=== PATIENT | female | born 1990 | race Caucasian/White ===

== ENCOUNTER 2018-10-18 05:57 | Inpatient (IN) | payer BC ==
--- NOTE | 2018-10-18 06:34 | Admission Physical ---
Datetime Report Generated by CPN: 10/18/2018 06:33 CURRENT ADMISSION Chief Complaint: Uterine Contractions Indication for Induction: Not Applicable Admit Impression : Term, Intrauterine Admit Plan: Initiate Labor Protocol ALLERGIES Medication Allergies: No OBSTETRICAL HISTORY : 1 Para: 0 Term: 0 : 0 SAB: 0 IAB: 0 Ectopic: 0 Livin Cesareans: 0 VBACs: 0 Multiple Births: 0 PHYSICAL EXAM General: Normal HEENT: Normal Neurologic: Normal Thyroid: Normal Heart: Normal Lungs: Normal Breast: Deferred Back: Normal Abdomen: Normal Genitourinary Exam: Normal Extremities: Normal DTRs: Normal Pelvic Type: Adequate INFORMED CONSENT Signature: with User ID: [email or web address]
[2018-10-18 06:41] LABS: APPEARANCE,URINE SLIGHTLY-CLOUDY; BILIRUBIN,URINE NEGATIVE (NEGATIVE); COLOR,URINE YELLOW; GLUCOSE, URINE NEGATIVE (NEGATIVE); KETONES,URINE NEGATIVE (NEGATIVE); LEUKOCYTE ESTERASE,URINE NEGATIVE (NEGATIVE); NITRITE,URINE NEGATIVE (NEGATIVE); PROTEIN,URINE NEGATIVE (NEGATIVE); URINE SPECIFIC GRAVITY 1.013; UROBILINOGEN,URINE NEGATIVE mg/dL (<2.0)
[2018-10-18 07:02] LABS: URINE AMPHETAMINES SCREEN NEGATIVE; URINE BARBITURATES SCREEN NEGATIVE; URINE BENZODIAZEPINES SCREEN NEGATIVE; URINE COCAINE SCREEN NEGATIVE; URINE MARIJUANA (THC) SCREEN NEGATIVE; URINE METHADONE SCREEN NEGATIVE; URINE PHENCYCLIDINE SCREEN NEGATIVE
[2018-10-18] MEDS ORDERED: RINGERS SOLUTION,LACTATED 1,000 ML IV ONE (07:03)
[2018-10-18] MEDS ORDERED: RINGERS SOLUTION,LACTATED 1,000 ML IV PRN (07:03)
[2018-10-18] MEDS ORDERED: OXYTOCIN 10 UNIT/ML VIAL ONE (07:57)
[2018-10-18] MEDS ORDERED: OXYTOCIN/NORMAL SALINE 20 UNIT/1,000 ML RTUINJ ONE (07:58)
[2018-10-18] MEDS ORDERED: MISOPROSTOL 0.2 MG TABLET ONE ×2 (07:58→07:59)
[2018-10-18] MEDS ORDERED: LIDOCAINE 1% INJ-PF (10 MG/ML) 30 ML SDV ONE (07:58)
[2018-10-18 08:14] LABS: ABSOLUTE LYMPHOCYTES (AUTO) 1.3 10^3/uL (0.5-4.7); ABSOLUTE MONOCYTES (AUTO) 0.7 10^3/uL (0.1-1.4); BASOPHILS % (AUTO) 0.3 % (0-2); EOSINOPHILS % (AUTO) 0.4 % (0-6); HEMATOCRIT 37.6 % (36.0-47.0); HEMOGLOBIN 12.8 g/dL (12.0-15.5); LYMPHOCYTES % (AUTO) 12.1 % (13-45); MEAN CORPUSCULAR HEMOGLOBIN 29.7 pg (27.0-33.4); MEAN CORPUSCULAR HGB CONC 34.1 g/dL (32.0-36.0); MEAN CORPUSCULAR VOLUME 87 fl (80-97); MONOCYTES % (AUTO) 5.9 % (3-13); PLATELET COUNT 181 10^3/uL (150-450); RED BLOOD COUNT 4.31 10^6/uL (3.72-5.28); RED CELL DISTRIBUTION WIDTH 13.6 % (11.5-14.0); SEGMENTED NEUTROPHILS % (AUTO) 81.3 % (42-78); TOTAL CELLS COUNTED % (AUTO) 100 %
[2018-10-18] MEDS ORDERED: DIBUCAINE 1% OINTMENT 56 GM TP PRN (10:15)
[2018-10-18] MEDS ORDERED: ZOLPIDEM TARTRATE 5 MG TABLET PO PRN (10:15)
[2018-10-18] MEDS ORDERED: BENZOCAINE/MENTHOL AEROSOL SPRAY 56 ML TOP PRN (10:15)
[2018-10-18] MEDS ORDERED: ACETAMINOPHEN WITH CODEINE #3 TABLET PO PRN (10:15)
[2018-10-18] MEDS ORDERED: DIPH/PERTUSS(ACELL)/TETANUS VAC/PF 0.5 ML SYR (>=10YO) IM PRN (10:15)
[2018-10-18] MEDS ORDERED: MEASLES,MUMPS&RUBELLA VACC/PF 0.5 ML VIAL SUBCUT PRN (10:15)
[2018-10-18] MEDS ORDERED: OXYTOCIN/NORMAL SALINE 20 UNIT/1,000 ML RTUINJ IV PRN (10:15)
--- NOTE | 2018-10-18 11:29 | Warning Signs in Babies ---
VOD Warning Signs Datetime Report Generated by [facility]: 10/18/2018 11:29 VOD#608 -Warning Signs in Babies: Viewed with Parent(s)/Family (10/18/2018 11:29:Jose Frazier RN)
--- NOTE | 2018-10-18 11:30 | Warning Signs in Babies ---
VOD Warning Signs Datetime Report Generated by [facility]: 10/18/2018 11:30 VOD#608 -Warning Signs in Babies: Viewed with Parent(s)/Family (10/18/2018 11:29:Jose Frazier RN)
--- NOTE | 2018-10-18 13:15 | Delivery Summary ---
Del Sum A-C Datetime Report Generated by CPN: 10/18/2018 13:15 DELIVERY PERSONNEL DELIVERY PERSONNEL: [id number] Delivery Doctor:: Nathalia Landa CNM Labor and Delivery Nurse:: Jose Frazier RNprotein chemist Nurse:: Izabel Pettit RN Nursery Nurse:: Domonique Berrios RN Student Observers:: SN Reyna TEJADA RN H STANZIL, SN S TILLEY, SN Scrub Tech/PRIMER CHARGING TOOL SETTER: Tigist Chu, ST MATERNAL INFORMATION Delivery Anesthesia: None Medications After Delivery: Pitocin Bolus-Please Comment; Pitocin Drip 20 Units/1000ml NSS Maternal Complications: None Provider Comments: of VFI, TEMO, Meconium stained fluid present and noted during pushing. Baby was bulb suctioned and placed on pts abdoman vigourus and crying. Cord clamped after 90 seconds, Cord blood obtained. Apgars 8,0. Umbilical cord evulsed as placenta was delivering, placenta grabbed in the vaginal canal and gentley delivered. ff w/ decreased lochia, IV Pitocin infusing. 2nd degree laceration repaired. Pt and baby both in stable condition and she plans to breastfeed. QBL 200 ml. Attending MD is Dr Plunkett LABOR SUMMARY EDC: 10/19/2018 00:00 No. Babies in Womb: 1 Attempted: No Labor Anesthesia: None LABOR INFORMATION Reason for Induction: Not Applicable Onset of Labor: 10/18/2018 04:00 Complete Dilatation: 10/18/2018 09:15 Oxytocin: N/A Group B Beta Strep: Negative Antibiotics # of Doses: 0 Steroids Given: None Reason Steroids Not Administered: Not Applicable MEMBRANES Membranes Rupture Method: Artificial Rupture of Membranes: 10/18/2018 09:15 Length of Rupture (hr): 0.43 Amniotic Fluid Color: Bloody Amniotic Fluid Amount: Small Amniotic Fluid Odor: None STAGES OF LABOR Stage 1 hr: 5 Stage 1 min: 15 Stage 2 hr: 0 Stage 2 min: 26 Stage 3 hr: 0 Stage 3 min: 7 Total Time in Labor hr: 5 Total Time in Labor min: 48 VAGINAL DELIVERY Episiotomy: None Laceration #1: Perineal Laceration Extension #1: Second Degree Laceration #2: Perineal Laceration Repair: Yes Laceration Repair Note: 2nd degree laceration repaired using 3.0 Vicryl and 1% lidocaine local anesthetic. Pt tolerated procedure well Sponge Count Correct: N/A Sharps Count Correct: N/A CSECTION DELIVERY Primary Indication: N/A Secondary Indication: N/A CSection Incidence: N/A Labor: N/A Elective: N/A BABY A INFORMATION Delivery Date/Time: 10/18/2018 09:41 Method of Delivery: Vaginal Born in Route : No : N/A Forceps: N/A Vacuum Extraction: N/A Shoulder Dystocia : No PRESENTATION/POSITION BABY A Presentation: Cephalic Cephalic Presentation: Vertex Vertex Position: Right Occipital Anterior Breech Presentation: N/A PLACENTA INFORMATION BABY A Placenta Delivery Time : 10/18/2018 09:48 Placenta Method of Delivery: Spontaneous Placenta Status: Delivered SCORES BABY A Heart Rate 1 min: >100 bpm Resp Effort 1 min: Good Cry Reflex Irritability 1 min: Cough or Sneeze or Pulls Away Muscle Tone 1 min: Active Motion Color 1 min: Blue/Pale Resuscitation Effort 1 min: Tactile Stimulation SCORE 1 MIN: 8 Heart Rate 5 min: >100 bpm Resp Effort 5 min: Good Cry Reflex Irritability 5 min: Cough or Sneeze or Pulls Away Muscle Tone 5 min: Active Motion Color 5 min: Body [place], Extremities Blue Resuscitation Effort 5 min: Tactile Stimulation SCORE 5 MIN: 9 INFORMATION BABY A Gestational Age at Delivery: 39.6 Gestational Status: Full Term- 39- 40.6 Weeks Outcome : Liveborn Condition : Stable Infant Sex: Female IDENTIFICATION BABY A Infant Verification Date/Time: 10/18/2018 10:26 ID Band Number: [id number] Mother's Name Verified: Yes Infant RN Verifying Infant: Sameer Frazier, RN and A. Gutierrez, RN WEIGHT/LENGTH BABY A Birthweight (gm): 3602 Weight (lb): 7 Infant Weight (oz): 15 Length (in): 21.00 Length (cm): 53.34 CORD INFORMATION BABY A No. Cord Vessels: 3 Nuchal Cord : N/A Cord Blood Taken: Yes-For Eval (Mom's Blood Type - or O+) Suction: None ASSESSMENT BABY A Infant Complications: Multiple Variable Decels; Meconium Physical Findings at Delivery: Within Normal Limits Respirations: Appears Normal Skin to Skin: Yes Customer Service Driver/ALS Called : No Infant Care By: Mirna BERRIOS, RN Transferred To: Remains with Mother BABY B INFORMATION : N/A SIGNATURES Assignment: Tierra Hernández MD Signature: with User ID: [email or web address] : with User ID: [email or web address]
[2018-10-18] MEDS: FERROUS SULFATE 325 MG TABLET PO SCH (17:33)
[2018-10-18] MEDS: DOCUSATE SODIUM 100 MG CAPSULE PO SCH (17:33)
[2018-10-18] MEDS: IBUPROFEN 800 MG TABLET PO SCH (21:20)
[2018-10-19] MEDS: IBUPROFEN 800 MG TABLET PO SCH ×3 (06:47→21:18)
[2018-10-19 10:10] LABS: HEMATOCRIT 36.5 % (36.0-47.0); HEMOGLOBIN 12.5 g/dL (12.0-15.5); MEAN CORPUSCULAR HEMOGLOBIN 30.1 pg (27.0-33.4); MEAN CORPUSCULAR HGB CONC 34.2 g/dL (32.0-36.0); MEAN CORPUSCULAR VOLUME 88 fl (80-97); PLATELET COUNT 168 10^3/uL (150-450); RED BLOOD COUNT 4.16 10^6/uL (3.72-5.28); RED CELL DISTRIBUTION WIDTH 14.2 % (11.5-14.0); WHITE BLOOD COUNT 8.2 10^3/uL (4.0-10.5)
[2018-10-19] MEDS: DOCUSATE SODIUM 100 MG CAPSULE PO SCH ×2 (11:17→18:01)
[2018-10-19] MEDS: PRENATAL VITAMIN W DHA CAPSULE PO SCH (11:17)
[2018-10-19] MEDS: FERROUS SULFATE 325 MG TABLET PO SCH ×2 (11:17→18:03)
[2018-10-19] MEDS: SENNOSIDES/DOCUSATE 8.6-50 MG 1 EACH TABLET PO SCH (11:17)
--- NOTE | 2018-10-19 12:45 | PDOC PROGRESS REPORT ---
Subjective-OB Progress Note for:: 10/19/18 Subjective: 28yo G1 now P1 s/p ppd1. Pt. ambulating and voiding without difficulty. Pain well controlled with medication, no concerns at this time. Physical Exam (OB) Vital Signs: Temp Pulse Resp BP Pulse Ox 97.8 F 79 16 123/63 99 10/19/18 08:13 10/19/18 08:13 10/19/18 08:13 10/19/18 08:13 10/19/18 08:13 Intake & Output 10/18/18 10/19/18 10/20/18 06:59 06:59 06:59 Intake Total 800 Balance 800 Weight 99.5 kg - General General Appearance: Appears well, Alert In distress: None - Episiotomy/Laceration Site Condition: Well Approximated - Lochia Lochia Amount: Small 10-25 ml Lochia Color: Rubra/Red - Abdomen Description: Soft Hernia Present: No - Respiratory Respiratory Status: No respiratory distress - Extremities Upper extremity: Normal inspection Lower extremities: Normal inspection - Neurological Cognition: Normal Orientation: AAOx4 - Psychological Associated symptoms: Normal affect, Normal mood Objective-Diagnostic Laboratory: 10/19/18 09:01 10/19/18 09:01 WBC 8.2 RBC 4.16 Hgb 12.5 Hct 36.5 MCV 88 MCH 30.1 MCHC 34.2 RDW 14.2 H Plt Count 168 Assessment and Plan(PN) - Assessment and Plan (1) Perineal laceration during delivery, delivered Is this a current diagnosis for this admission?: Yes Plan: monitor for s/s of infection. (2) Normal delivery at term Is this a current diagnosis for this admission?: Yes Plan: Routine pp care (3) Meconium in amniotic fluid Is this a current diagnosis for this admission?: Yes Plan: delivered - Time Spent with Patient Time with patient: Less than 15 minutes Medications reviewed and adjusted accordingly: Yes - Disposition Anticipated Discharge: Home Within: within 24 hours
[2018-10-20] MEDS: IBUPROFEN 800 MG TABLET PO SCH ×2 (06:44→08:29)
--- NOTE | 2018-10-20 09:51 | PDOC PROGRESS REPORT ---
Subjective-OB Progress Note for:: 10/20/18 Subjective: Ready for discharge Physical Exam (OB) Vital Signs: Temp Pulse Resp BP Pulse Ox 98.2 F 76 15 113/72 96 10/20/18 08:24 10/20/18 08:24 10/20/18 08:24 10/20/18 08:24 10/20/18 08:24 Intake & Output 10/19/18 10/20/18 10/21/18 06:59 06:59 06:59 Intake Total 800 Balance 800 Weight 99.5 kg - Lochia Lochia Amount: Small 10-25 ml Lochia Color: Rubra/Red - Abdomen Description: Soft Hernia Present: No Bowel Sounds: Normoactive Flatus Presence: Present Stool: Yes Objective-Diagnostic Laboratory: 10/19/18 09:01 10/19/18 09:01 WBC 8.2 RBC 4.16 Hgb 12.5 Hct 36.5 MCV 88 MCH 30.1 MCHC 34.2 RDW 14.2 H Plt Count 168 Assessment and Plan(PN) - Time Spent with Patient Medications reviewed and adjusted accordingly: Yes - Disposition Anticipated Discharge: Home
--- NOTE | 2018-10-20 09:55 | PDOC DISCHARGE SUMMARY ---
Final Diagnosis Discharge Date: 10/20/18 - Final Diagnosis (1) Meconium in amniotic fluid Is this a current diagnosis for this admission?: Yes (2) Normal delivery at term Is this a current diagnosis for this admission?: Yes (3) Obesity (BMI 30.0-34.9) Is this a current diagnosis for this admission?: Yes (4) Perineal laceration during delivery, delivered Is this a current diagnosis for this admission?: Yes Discharge Data - Discharge Medication Home Medications: Vit No.130/Iron/Folic [ Tablet] 1 each PO DAILY 10/18/18 Gestational Age: 39.6 wks Reason(s) for Admission: Onset of Labor Procedures: Ultrasound Intrapartum Procedure(s): Spontaneous Vaginal Delivery Complication(s): Laceration-Perineal Laceration-Degree: 2nd - Data Baby 1 Female at 1 minute: 8 at 5 minutes: 9 Weight: 3.6 kg Home with Mother: Yes Complications: No - Diagnosis Test Laboratory: Temp Pulse Resp BP Pulse Ox 98.2 F 76 15 113/72 96 10/20/18 08:24 10/20/18 08:24 10/20/18 08:24 10/20/18 08:24 10/20/18 08:24 10/18/18 10/18/18 10/19/18 06:12 07:26 09:01 RBC 4.31 4.16 Hgb 12.8 12.5 Hct 37.6 36.5 Urine Opiates Screen NEGATIVE - Discharge information/Instructions Discharge Activity: Activity As Tolerated, Balance Activity w/Rest, Pelvic Rest, Slowly Increase Activity, No tub bath Discharge Diet: Regular Disposition: HOME, SELF-CARE Follow up with: [facility] in: 4, Weeks
[2018-10-20] MEDS: DOCUSATE SODIUM 100 MG CAPSULE PO SCH (10:01)
[2018-10-20] MEDS: PRENATAL VITAMIN W DHA CAPSULE PO SCH (10:01)
[2018-10-20] MEDS: SENNOSIDES/DOCUSATE 8.6-50 MG 1 EACH TABLET PO SCH (10:01)
[2018-10-20] MEDS: FERROUS SULFATE 325 MG TABLET PO SCH (10:01)
[2018-10-20 10:54] VITALS: BP 121/74
== END 2018-10-20 13:55 | disposition home or self-care (01) | DRG 807 ==
LOC: LC 05:57 → LR 06:30 → 2S 12:02
PROVIDERS: ADMIT Obstetrics & Gynecology Gynecology; ATTEND Obstetrics & Gynecology
PROC: 10E0XZZ Delivery of Products of Conception, External Approach (ICD-10-PCS; principal; 2018-10-18)
PROC: 0KQM0ZZ Repair Perineum Muscle, Open Approach (ICD-10-PCS; 2018-10-18)
PROC: 10907ZC Drainage of Amniotic Fluid, Therapeutic from Products of Conception, Via Natural or Artificial Opening (ICD-10-PCS; 2018-10-18)
DX: O76 Abnormality in fetal heart rate and rhythm complicating labor and delivery (principal); Z37.0 Single live birth; O77.0 Labor and delivery complicated by meconium in amniotic fluid; O69.89X0 Labor and delivery complicated by other cord complications, not applicable or unspecified; O70.1 Second degree perineal laceration during delivery; Z3A.39 39 weeks gestation of pregnancy; O99.214 Obesity complicating childbirth; E66.9 Obesity, unspecified
CPT/HCPCS: 36415; 80307; 81005; 84112; 85025; 85027; 86592; 86850; 86900; 86901; J2590; J3490